=== PATIENT | female | born 1945 | race Caucasian/White ===

== ENCOUNTER 2017-05-06 05:33 | Day surgery (SDC) | payer OTHER ==
[2017-05-06] MEDS ORDERED: LR 1,000 ML IV ONE (06:09)
--- NOTE | 2017-05-06 06:27 | PDHPUP ---
History & Physical Update H&P update statement: This history and physical update is based on an assessment of the patient which was completed after admission or registration (within 24 hours), but prior to the surgery/procedure. H&P update: H&P reviewed & patient examined, no change in patient's condition since H&P completed
[2017-05-06] MEDS ORDERED: ceFAZolin 2 GM/SWFI 2 GM/20 ML SYR IVP ONE (06:45)
[2017-05-06] MEDS ORDERED: BUPIVACAINE 0.25% 30 ML SDV ONE (06:59)
[2017-05-06] MEDS ORDERED: CHLORHEXIDINE GLUC HIBICLENS 118 ML BTL TP ONE (07:00)
[2017-05-06] MEDS ORDERED: IOPAMIDOL (ISOVUE-M 300) 15 ML VIAL ONE ×2 (07:01→07:10)
[2017-05-06] MEDS ORDERED: THROMBIN (BOVINE) 5,000 UNIT VIAL TP ONE (07:01)
[2017-05-06] MEDS ORDERED: BACITRACIN 50,000 UNITS/10 ML SYR IRR ONE (07:02)
[2017-05-06] MEDS ORDERED: ROCURONIUM 50 MG/5 ML VIAL ONE (07:03)
[2017-05-06] MEDS ORDERED: fentaNYL 100 MCG/2 ML INJ ONE (07:03)
[2017-05-06] MEDS ORDERED: PROPOFOL 200 MG/20 ML VIAL ONE (07:03)
[2017-05-06] MEDS ORDERED: ONDANSETRON 4 MG/2 ML VIAL IVP PRN (07:04)
[2017-05-06] MEDS ORDERED: HYDROCODONE/APAP 5/325 TAB PO PRN (07:04)
[2017-05-06] MEDS ORDERED: MIDAZOLAM 2 MG/2 ML VIAL IVP ONE (07:04)
[2017-05-06] MEDS ORDERED: NALOXONE HCL 0.4 MG/ML INJ IVP PRN (07:04)
[2017-05-06] MEDS ORDERED: ALBUTEROL 3 ML DEYVIAL IH PRN (07:04)
[2017-05-06] MEDS ORDERED: ACETAMINOPHEN 500 MG TAB PO PRN (07:04)
[2017-05-06] MEDS ORDERED: HYDROmorphONE/DILAUDID 1 MG/ML INJ IVP PRN (07:04)
[2017-05-06] MEDS ORDERED: LR 500 ML IV PRN (07:04)
[2017-05-06] MEDS ORDERED: fentaNYL 100 MCG/2 ML INJ IVP PRN (07:04)
--- NOTE | 2017-05-06 07:06 | PDANEPAE ---
ANE History of Present Illness L4-5 Kyphoplasty ANE Past Medical History - Cardiovascular History Hx Hypertension: No Hx Arrhythmias: No Hx Chest Pain: No Hx Coronary Artery / Peripheral Vascular Disease: No Hx CHF / Valvular Disease: No Hx Palpitations: No - Pulmonary History Hx COPD: No Hx Asthma/Reactive Airway Disease: No Hx Recent Upper Respiratory Infection: No Hx Oxygen in Use at Home: No Hx Sleep Apnea: No Sleep Apnea Screening Result - Last Documented: Negative - Neurologic History Hx Cerebrovascular Accident: No Hx Seizures: No Hx Dementia: No - Endocrine History Hx Diabetes: No - Renal History Hx Renal Disorders: No - Liver History Hx Hepatic Disorders: No - Neurological & Psychiatric Hx Hx Neurological and Psychiatric Disorders: No - Cancer History Hx Cancer: No - Congenital Disorder History Hx Congenital Disorders: No - GI History Hx Gastrointestinal Disorders: No - Other Health History Other Health History: Cataract surgery bilateral 2013. Low thyroid. shograns disease - Surgical History Prior Surgeries: Bilateral cataract surgery 2013. Tubal ligation 1976 ANE Review of Systems Review of Systems: - Exercise capacity METS (RN): 4 METS ANE Patient History - Allergies Allergies/Adverse Reactions: levothyroxine sodium [From Synthroid] Allergy (Verified 05/06/17 06:12) sulfamethoxazole [From Bactrim] Allergy (Verified 04/30/17 13:59) trimethoprim [From Bactrim] Allergy (Verified 04/30/17 14:00) - Home Medications Home Medications: Cytomel BID 04/30/17 [Last Taken 05/05/17 16:00] MOTRIN PRN 04/30/17 [Last Taken 04/29/17] Preservision Areds Tablet BID 04/30/17 [Last Taken 04/29/17] - NPO status NPO Since - Liquids (Date): 05/05/17 NPO Since - Liquids (Time): 16:30 NPO Since - Solids (Date): 05/05/17 NPO Since - Solids (Time): 16:30 - Smoking Hx Smoking Status: Never smoked - Family Anes Hx Family Hx Anesthesia Complications: NA ANE Labs/Vital Signs - Vital Signs Blood Pressure: 156/84 Heart Rate: 97 Respiratory Rate: 16 O2 Sat (%): 97 Height: 167.64 cm Weight: 68.039 kg ANE Physical Exam - Airway Neck exam: FROM Mallampati Score: Class 2 Mouth exam: dentures - Pulmonary Pulmonary: clear to auscultation - Cardiovascular Cardiovascular: regular rate and rhythym - ASA Status ASA Status: II ANE Anesthesia Plan Anesthesia Plan: general endotracheal anesthesia
[2017-05-06] MEDS ORDERED: DEXAMETHASONE 4 MG/ML VIAL ONE (07:07)
[2017-05-06] MEDS ORDERED: ONDANSETRON 4 MG/2 ML VIAL ONE (07:07)
[2017-05-06] MEDS ORDERED: LIDOCAINE 2% 5 ML SDV ONE (07:07)
[2017-05-06] MEDS ORDERED: SUGAMMADEX SODIUM 500 MG/5 ML VIAL IVP ONE (08:08)
--- NOTE | 2017-05-06 08:49 | SOAPPROG ---
[facility] Progress Note Assessment/Plan: Assessment: 72 yo F sp L4, L5 kyphoplasty Plan: stable dc home today please call with neuro changes 05/06/17 08:47 Subjective: + back pain, no leg pain, no weakness. Objective: Vital Signs Temp Pulse Resp BP Pulse Ox 37.0 C 97 16 156/84 H 97 05/06/17 06:45 05/06/17 07:06 05/06/17 07:06 05/06/17 07:06 05/06/17 07:06 awake, alert PERRL, no facial droop GABRIEL x 4 + light touch ICD10 Worksheet Patient Problems: Problems Problem Status Onset Lumbar compression fracture Acute - ICD10 Problem Qualifiers (1) Lumbar compression fracture Qualifiers: Encounter type: subsequent encounter Lumbar vertebra fracture level: L5 Fracture type: closed Fracture healing: with delayed healing Qualified Code( s): S32.050G - Wedge compression fracture of fifth lumbar vertebra, subsequent encounter for fracture with delayed healing
--- NOTE | 2017-05-06 09:01 | GOP ---
[f rep st] OPERATIVE REPORT DATE OF OPERATION: 05/06/2017 SURGEON: Cj Uribe MD NEUROSURGEON: Cj Uribe MD [employer]ER: BERNARD Guerrero ANESTHESIA: General endotracheal. 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 POSTOPERATIVE DIAGNOSIS: Osteoporotic and traumatic L4 and L5 vertebral compression fractures. PROCEDURE PERFORMED: Minimally invasive L4 and L5 kyphoplasty procedures with balloon reduction of f ractures. Use of computer volumetric stereotactic navigation. FINDINGS: ESTIMATED BLOOD LOSS: Trace. INDICATIONS: The patient is a 72-year-old woman with progressive loss of height and intractable pain secondary to osteoporotic traumatic vertebral compression fractures at the L4 and L5 levels, who pre sents for percutaneous minimally invasive image-guided reduction of the fracture and injection of bon e cement. DESCRIPTION OF PROCEDURE: After informed consent was obtained, the patient was taken to the operatin g room and placed in a prone position on the Nasim table. The lumbosacral area was prepped and shantell ped in sterile fashion. After fluoroscopic localization of the correct levels, the subcutaneous and intramuscular tissues were infiltrated with local anesthesia. A midline linear incision was then cre ated approximately 1 to 2 levels above the area of interest. The incision was carried down to the fa scial layer, which was then incised using monopolar electrocautery, and the TruQu neuronavigational frame was connected to the spinous process. The O-arm neuronavigational system was brought in and 3 -D reconstructed images obtained and sent to the TruQu station. Using computer volumetric stereota ctic navigation, cannulas were placed at L4 and L5 bilaterally. Real-time biplanar fluoroscopy was a lso utilized. The K-wires were placed and the trocars removed. The levels were drilled and balloons placed and dialed up under biplanar fluoroscopic image guidance for reduction of the fracture. The balloons were then removed, and each level was injected with 1.5 cc of bone cement bilaterally for a total of 3 cc at each level. The trocars were then removed, and the wounds were copiously irrigated with antibiotic irrigation and meticulous hemostasis was achieved. The wounds were then closed in a layered fashion using interrupted Vicryl sutures, followed by Steri-Strips on the skin. COMPLICATIONS: None. DISPOSITION: The patient is currently in the process of being repositioned for extubation. /[id number]/MODL
--- NOTE | 2017-05-06 09:14 | POSTANESTH ---
Post Anesthetic Evaluation Cardiovascular Status: Normal, Stable Respiratory Status: Normal, Stable Level of Consciousness/Mental Status: Can Participate in Eval, Alert and Oriented Pain Control: Adequate, Prn Tx Ordered Nausea/Vomiting Control: Adequate, Prn Tx Ordered Complications Possibly Related to Anesthesia: None Noted
[2017-05-06] MEDS ORDERED: ACETAMINOPHEN 500 MG TAB ONE (09:27)
[2017-05-06 09:33] VITALS: TEMP 97
[2017-05-06 10:58] VITALS: PULSE 76
[2017-05-06 12:01] VITALS: BP 154/85; RESP 20
[2017-05-06 12:20] VITALS: O2SAT 92
== END 2017-05-06 12:12 | disposition home or self-care (01) ==
LOC: FSGY 05:33 → EEVIPCON 07:15 → EDSEX 07:15 → FSGY 12:12
PROVIDERS: ATTEND Neurological Surgery
PROC: 0QU03JZ Supplement Lumbar Vertebra with Synthetic Substitute, Percutaneous Approach (ICD-10-PCS; principal; 2017-05-06 07:15)
PROC: 8E0WXBF Computer Assisted Procedure of Trunk Region, With Fluoroscopy (ICD-10-PCS; principal; 2017-05-06 07:15)
DX: S32.040A Wedge compression fracture of fourth lumbar vertebra, initial encounter for closed fracture (principal); S32.050A Wedge compression fracture of fifth lumbar vertebra, initial encounter for closed fracture; M51.36 Other intervertebral disc degeneration, lumbar region; R29.890 Loss of height; E03.9 Hypothyroidism, unspecified; M35.00 Sjogren syndrome, unspecified; M35.3 Polymyalgia rheumatica
CPT/HCPCS: 22511; 22512; 61783; 76001; C1894; C1713; J0171; J0690; J1100; J2250; J2405; J2704; J3010; Q9967